=== PATIENT | male | born 1960 | race Caucasian/White ===

== ENCOUNTER 2017-01-26 10:20 | Emergency (ER) | payer MEDICARE, MEDICAID ==
[2017-01-26] MEDS ORDERED: ONDANSETRON HCL IV 4 MG/2 ML VIAL IV ONE (10:48)
[2017-01-26 11:03] LABS: BASO % 1.6 % (0-6); EOS % 1.6 % (0-6); GRAN % 76.7 % (47-80); HEMATOCRIT 25.1 % (42.0-52.0); HEMOGLOBIN 8.1 gm/dl (14.0-18.0); LYMPH % 8.5 % (16-45); MEAN CELL VOLUME 99.2 fl (81-97); MEAN CORPUSCULAR HGB CONC 32.3 g/dl (32-36); MEAN PLATELET VOLUME 10.3 fl (7.4-10.4); MONO % 11.6 % (0-9); PLATELET COUNT 83 K/uL (130-400); RED BLOOD COUNT 2.53 M/uL (4.40-5.70); RED CELL DISTRIBUTION WIDTH 14.6 % (11.5-14.5)
--- NOTE | 2017-01-26 11:03 | Emergency Department Record ---
History of Present Illness - General Chief complaint: Nausea, Vomiting, Diarrhea Stated complaint: doesn't feel well Time Seen by Provider: 01/26/17 10:34 Source: Patient Mode of Arrival: Ambulatory Limitations: No limitations - History of Present Illness Initial comments: The patient is here due to a week of nausea with vomiting intermittently. He did last vomit 3 days ago. He has been having some mild upper abdominal pain but denies any CP, SOB, back pain, JAIMES, or fever. The patient is presently being treated for esophageal CA and did have an infusaport placed last week at [facility]. He also has a hx of renal failure and is on dialysis MW but has not received it today. The patient does have a chronic good catheter and it has been draining normally. The patient usually goes to [facility] for his medical care but he did not have enough gas to get there today. MD complaint: Nausea, Vomiting Onset/Timin -: Days(s) Associated Abdominal Pain: Yes Location: LLQ, RLQ, Diffuse Severity: Moderate Quality: Aching Consistency: Constant Improves with: None - Related Data Home Medications Medication Instructions Recorded Confirmed Last Taken Acetaminophen 325 mg PO ASDIR PRN 01/26/17 01/26/17 1 Day Ago ~01/25/17 Cinacalcet HCl [Sensipar] 120 mg PO DAILY 01/26/17 01/26/17 1 Day Ago ~01/25/17 Ferrous Fum/Folic Acid/Bcomp,C 1 each PO DAILY 01/26/17 01/26/17 1 Day Ago [Dialyvite 800 with Iron Tab] ~01/25/17 Hydrocodone/Acetaminophen [[place] 1 each PO QID PRN 01/26/17 01/26/17 1 Day Ago 5-325 Tablet] ~01/25/17 Lidocaine/Prilocaine [Lido-Prilo 1 each TP ASDIR 01/26/17 01/26/17 1 Day Ago Fly Pack] ~01/25/17 Lorazepam [Ativan] 1 mg PO ASDIR 01/26/17 01/26/17 1 Day Ago ~01/25/17 Ondansetron [Zofran Odt] 4 mg PO BID PRN 01/26/17 01/26/17 1 Day Ago ~01/25/17 Sevelamer Carbonate [Renvela] 800 mg PO TID 01/26/17 01/26/17 1 Day Ago ~01/25/17 Previous Rx's Medication Instructions Recorded Ondansetron [Zofran Odt] 4 mg SL .Q4-6H PRN #12 tab.rapdis 01/26/17 Allergies Allergy/AdvReac Type Severity Reaction Status Date / Time NO KNOWN DRUG ALLERGY Allergy HYPERSENSIT Uncoded 01/26/17 10:45 IVITY Travel Screening - Travel/Exposure Within Last 30 Days Have you traveled within the last 30 days?: No - Travel/Exposure Within Last Year Have you traveled outside the [place] in the last year?: No - Additonal Travel Details Have you been exposed to anyone with a communicable illness?: No - Travel Symptoms Symptom Screening: None Review of Systems Constitutional: Reports: Malaise. Denies: Chills, Fever Eyes: Denies: Eye discharge ENT: Denies: Congestion Respiratory: Denies: Cough, Dyspnea Cardiovascular: Denies: Arrhythmia, Chest pain Past Medical History - SOCIAL HISTORY Smoking Status: Never smoker Alcohol Use: None Drug Use: None - RESPIRATORY Hx Respiratory Disorders: No - CARDIOVASCULAR Hx Hypertension: Yes - NEURO Hx Neuro Disorders: No - GI Comment:: esaphageal CA - Hx Dialysis: Yes Hx Renal Disease: Yes (fistula, MWF) Comment:: good with leg bag - ENDOCRINE Hx Diabetes: No Hx Thyroid Disease: No - MUSCULOSKELETAL Hx Musculoskeletal Disorders: No - PSYCH Hx Anxiety: Yes Hx Depression: Yes - HEMATOLOGY/ONCOLOGY Hx Cancer: Yes (esaphageal) Hx Chemotherapy: Yes (last Thursday) Hx Radiation Therapy: Yes (Last Thursday) Family Medical History Any Significant Family History?: Yes Physical Exam - General General Appearance: Alert, Oriented x3, Cooperative, No acute distress - Head Head exam: Atraumatic, Normocephalic, Normal inspection - ENT Throat exam: Normal inspection. negative: Tonsillar erythema, Tonsillar exudate - Neck Neck exam: Normal inspection, Full ROM. negative: Tenderness - Respiratory Respiratory exam: Normal lung sounds bilaterally. negative: Respiratory distress - Cardiovascular Cardiovascular Exam: Regular rate, Normal rhythm, Normal heart sounds - GI/Abdominal GI/Abdominal exam: Soft, Normal bowel sounds, Tenderness (There is some very mild epigastric tenderness but no masses, guarding or rebound.). negative: Rebound, Rigid - Extremities Extremities exam: negative: Normal inspection - Neurological Neurological exam: Alert, Normal gait, Oriented X3. negative: Abnormal gait, Motor sensory deficit Course Vital Signs 01/26/17 10:24 Temperature 98.1 F Pulse Rate 116 H Respiratory 18 Rate Blood Pressure 112/86 Pulse Ox 98 - Reevaluation(s) Reevaluation #1: The patient denies any pain, nausea or any discomfort at this time. He states he feels much better after the Zofran. I did explain to him that I feel what he needs is to be dialysed and will try to contact his HD doctor to get that accomplished. 01/26/17 11:26 Reevaluation #2: The patient is doing very well at this time. He denies any pain, nausea, or any discomfort. I did discuss the case with Dr. Lerma who is staff consultant at [facility] for Nephrology and he agrees with the plan to discharge the patient to drive for his HD run. The patient's lab work also was very similar to the lab work on prior to the catheter placement. The patient fully understands the plan and will get gas and drive directly to his HD location. 01/26/17 11:43 01/26/17 13:37 01/26/17 13:38 Medical Decision Making - Lab Data Result diagrams: 01/26/17 10:42 01/26/17 10:42 Disposition Disposition: Discharge Clinical Impression: Nausea Disposition: Home, Self-Care Condition: (1) Good Instructions: Acute Nausea and Vomiting (ED) Additional Instructions: Please continue your regular medicines and use the Zofran for nausea. Please go directly to the HD unit in [place] for Dialysis. Please return to the ER for any problems or issues. Prescriptions: Ondansetron [Zofran Odt] 4 mg SL .Q4-6H PRN #12 tab.rapdis PRN Reason: Nausea Forms: Patient Portal Access Time of Disposition: 11:45 Quality - Quality Measures Quality Measures: N/A - Blood Pressure Screening Blood Pressure Classification: Pre-Hypertensive BP Reading Systolic Measurement: 112 Diastolic Measurement: 86 Screening for High Blood Pressure: < Pre-Hypertensive BP, F/U Documented > [ G8950] Pre-Hypertensive Follow-up Interventions: Follow-up with rescreen every year.
[2017-01-26 11:05] LABS: WHITE BLOOD COUNT W/O DIFF 1.3 K/uL (4.2-12.2)
[2017-01-26 11:07] LABS: ALBUMIN 3.7 gm/dL (3.5-5.0); ANION GAP 11.3 (7-16); BILIRUBIN,TOTAL 0.8 mg/dL (0.2-1.3); CARBON DIOXIDE 19.7 mmol/L (22-30); CREATININE 7.5 mg/dL (0.66-1.25); TOTAL PROTEIN 6.9 gm/dL (6.3-8.2)
--- NOTE | 2017-01-27 08:28 | Emergency Department Record ---
History of Present Illness - General Chief complaint: Nausea, Vomiting, Diarrhea Stated complaint: doesn't feel well Time Seen by Provider: 01/26/17 10:34 Source: Patient Mode of Arrival: Ambulatory Limitations: No limitations - History of Present Illness Initial comments: Further hx on the patient: He is a very poor historian and states he does get his health care at [facility] but does not know his Cancer, PCP, Dental Chair Assembler or Surgeons names. He thinks his Dental Chair Assembler may be dark skinned but is not sure. He did drive here with no difficulty and is ambulating normally. The patient states he has been on HD for 3 years but is not sure why his kidneys failed and has VERY little insight as to his esophageal CA Dx. The patient states he is supposed to be taking Zofran for nausea but does not have any at home. MD complaint: Nausea, Vomiting Onset/Timin -: Days(s) Associated Abdominal Pain: Yes Location: LLQ, RLQ, Diffuse Severity: Moderate Quality: Aching Consistency: Constant Improves with: None - Related Data Home Medications Medication Instructions Recorded Confirmed Last Taken Acetaminophen 325 mg PO ASDIR PRN 01/26/17 01/26/17 1 Day Ago ~01/25/17 Cinacalcet HCl [Sensipar] 120 mg PO DAILY 01/26/17 01/26/17 1 Day Ago ~01/25/17 Ferrous Fum/Folic Acid/Bcomp,C 1 each PO DAILY 01/26/17 01/26/17 1 Day Ago [Dialyvite 800 with Iron Tab] ~01/25/17 Hydrocodone/Acetaminophen [[place] 1 each PO QID PRN 01/26/17 01/26/17 1 Day Ago 5-325 Tablet] ~01/25/17 Lidocaine/Prilocaine [Lido-Prilo 1 each TP ASDIR 01/26/17 01/26/17 1 Day Ago Fly Pack] ~01/25/17 Lorazepam [Ativan] 1 mg PO ASDIR 01/26/17 01/26/17 1 Day Ago ~01/25/17 Ondansetron [Zofran Odt] 4 mg PO BID PRN 01/26/17 01/26/17 1 Day Ago ~01/25/17 Sevelamer Carbonate [Renvela] 800 mg PO TID 01/26/17 01/26/17 1 Day Ago ~01/25/17 Previous Rx's Medication Instructions Recorded Ondansetron [Zofran Odt] 4 mg SL .Q4-6H PRN #12 tab.rapdis 01/26/17 Allergies Allergy/AdvReac Type Severity Reaction Status Date / Time NO KNOWN DRUG ALLERGY Allergy HYPERSENSIT Uncoded 01/26/17 10:45 IVITY Travel Screening - Travel/Exposure Within Last 30 Days Have you traveled within the last 30 days?: No - Travel/Exposure Within Last Year Have you traveled outside the [place] in the last year?: No - Additonal Travel Details Have you been exposed to anyone with a communicable illness?: No - Travel Symptoms Symptom Screening: None Review of Systems Constitutional: Reports: Malaise. Denies: Chills, Fever Eyes: Denies: Eye discharge ENT: Denies: Congestion Respiratory: Denies: Cough, Dyspnea Cardiovascular: Denies: Arrhythmia, Chest pain Past Medical History - SOCIAL HISTORY Smoking Status: Never smoker Alcohol Use: None Drug Use: None - RESPIRATORY Hx Respiratory Disorders: No - CARDIOVASCULAR Hx Hypertension: Yes - NEURO Hx Neuro Disorders: No - GI Comment:: esaphageal CA - Hx Dialysis: Yes Hx Renal Disease: Yes (fistula, MWF) Comment:: good with leg bag - ENDOCRINE Hx Diabetes: No Hx Thyroid Disease: No - MUSCULOSKELETAL Hx Musculoskeletal Disorders: No - PSYCH Hx Anxiety: Yes Hx Depression: Yes - HEMATOLOGY/ONCOLOGY Hx Cancer: Yes (esaphageal) Hx Chemotherapy: Yes (last Thursday) Hx Radiation Therapy: Yes (Last Thursday) Family Medical History Any Significant Family History?: Yes Physical Exam - General Limitations: No limitations Course Vital Signs 01/26/17 01/26/17 10:24 11:35 Temperature 98.1 F 98.7 F Pulse Rate 116 H Pulse Rate [ 95 H Pulse Ox Probe] Respiratory 18 18 Rate Blood Pressure 112/86 Blood Pressure 101/78 [Left Arm] Pulse Ox 98 98 - Reevaluation(s) Reevaluation #1: The patient was much improved after the Zofran and felt back to normal. He denied any JAIMES, cough, ST, fever, chills, back pain or diarrhea. He was up ambulating normally and refused an ambulance ride to [facility]. Since he found some gas money he stated he would get some gas and drive to his HD location. 01/27/17 08:27 Medical Decision Making - Lab Data Result diagrams: 01/26/17 10:42 01/26/17 10:42 Lab Results 01/26/17 01/26/17 Range/Units 10:42 10:42 WBC 1.3 L (4.2-12.2) K/uL RBC 2.53 L (4.40-5.70) M/uL Hgb 8.1 L (14.0-18.0) gm/dl Hct 25.1 L (42.0-52.0) % MCV 99.2 H (81-97) fl MCH 32.0 (27-33) pg MCHC 32.3 (32-36) g/dl RDW 14.6 H (11.5-14.5) % Plt Count 83 L (130-400) K/uL MPV 10.3 (7.4-10.4) fl Gran % 76.7 (47-80) % Lymphocytes % 8.5 L (16-45) % Monocytes % 11.6 H (0-9) % Eosinophils % 1.6 (0-6) % Basophils % 1.6 (0-6) % Sodium 138 (136-145) mmol/L Potassium 5.3 H (3.5-5.1) mmol/L Chloride 107 (98-107) mmol/L Carbon Dioxide 19.7 L (22-30) mmol/L Anion Gap 11.3 (7-16) BUN 44 H (9-20) mg/dL Creatinine 7.5 H (0.66-1.25) mg/dL Estimated GFR 8 ml/min Random Glucose 103 (70-110) mg/dL Calcium 9.4 (8.5-10.1) mg/dL Total Bilirubin 0.80 (0.2-1.3) mg/dL Direct Bilirubin 0.0 (0-0.3) mg/dL AST 11 L (17-59) U/L ALT 18 L (21-72) U/L Alkaline Phosphatase 64 (38-126) U/L Total Protein 6.9 (6.3-8.2) gm/dL Albumin 3.7 (3.5-5.0) gm/dL Lipase 97 (23-300) U/L Disposition Clinical Impression: Nausea Disposition: Home, Self-Care Condition: (1) Good Instructions: Acute Nausea and Vomiting (ED) Additional Instructions: Please continue your regular medicines and use the Zofran for nausea. Please go directly to the HD unit in [place] for Dialysis. Please return to the ER for any problems or issues. Prescriptions: Ondansetron [Zofran Odt] 4 mg SL .Q4-6H PRN #12 tab.rapdis PRN Reason: Nausea Forms: Patient Portal Access Quality - Quality Measures Quality Measures: N/A - Blood Pressure Screening Blood Pressure Classification: Pre-Hypertensive BP Reading Systolic Measurement: 112 Diastolic Measurement: 86 Screening for High Blood Pressure: < Pre-Hypertensive BP, F/U Documented > [ G8950] Pre-Hypertensive Follow-up Interventions: Follow-up with rescreen every year.
== END 2017-01-26 12:04 | disposition home or self-care (01) ==
LOC: ER 10:20
DX: R11.2 Nausea with vomiting, unspecified (principal); R19.7 Diarrhea, unspecified; R10.84 Generalized abdominal pain; I12.0 Hypertensive chronic kidney disease with stage 5 chronic kidney disease or end stage renal disease; N18.6 End stage renal disease; Z99.2 Dependence on renal dialysis; C15.9 Malignant neoplasm of esophagus, unspecified
CPT/HCPCS: 99284 ×2; 96374; 83690; 85025; 80076; 80048; J2405